=== PATIENT | male | born 1955 | race Caucasian/White ===

== ENCOUNTER → 2018-10-18 16:37 | Outpatient (CLI) | payer OTHER, SELFPAY ==
--- NOTE | 2018-10-18 16:45 | DI.RAD.S_ITS ---
PROCEDURE: XR FOREARM RT 2V INDICATIONS: elbow pain from fall TECHNIQUE: 2 views of the forearm were acquired. COMPARISON: None. FINDINGS: Bones: No fractures or dislocations. No suspicious bony lesions. Soft tissues: No suspicious soft tissue calcifications or masses. There is a small radiodensity in the superficial soft tissues dorsal to the elbow, possibly dystrophic calcification from some form of prior trauma. No acute disease. IMPRESSION: Small soft tissue calcification is superficial, no trauma found. Dictated by: Rickey Larios M.D. on 10/18/2018 at 17:19 Approved by: Rickey Larios M.D. on 10/18/2018 at 17:20
--- NOTE | 2018-10-18 16:45 | DI.RAD.S_ITS ---
PROCEDURE: XR ELBOW LT 2V INDICATIONS: elbow pain from fall TECHNIQUE: 3 views of the elbow were acquired. COMPARISON: None. FINDINGS: Bones: No fractures or dislocations. No suspicious bony lesions. Soft tissues: No elbow joint effusion. No suspicious soft tissue calcifications. IMPRESSION: No trauma found. Dictated by: Rickey Larios M.D. on 10/18/2018 at 17:19 Approved by: Rickey Larios M.D. on 10/18/2018 at 17:19
== END ==
PROVIDERS: PCP Family Medicine; Visit Provider Physician Assistant
DX: M25.522 Pain in left elbow (principal)
CPT/HCPCS: 73070; 73090